=== PATIENT | male | born 1960 | race Caucasian/White ===

== ENCOUNTER 2017-05-05 20:18 | Inpatient (IN) | payer MEDICAID ==
[~2017-05-05] VITALS: Ht 180.3 cm; Wt 116.0 kg
[2017-05-05 21:52] LABS: Basophils # (auto) 0.1 uL; Eosinophils # (auto) 0.2 uL; Eosinophils % (auto) 1.7 % (0.0-7.0); Hematocrit 43.2 % (41.0-53.0); Hemoglobin 14.3 g/dL (13.5-17.5); Lymphocytes # (auto) 2.2 uL; Lymphocytes % (auto) 16.9 % (10.0-50.0); Mean Corpuscular Hemoglobin 29.8 pg (28.0-32.0); Mean Corpuscular Volume 90.3 fL (80.0-100.0); Monocytes # (auto) 1.3 uL; Monocytes % (auto) 9.9 % (0.0-12.0); Neutrophils # (auto) 9.2 uL; Neutrophils % (auto) 70.5 % (37.0-80.0); Platelet Count (auto) 287 10^3/uL (140-450); Red Cell Distribution Width 14.2 % (11.8-14.3); White Blood Cell 13.1 10^3/uL (4.4-10.8)
[2017-05-05 22:03] LABS: Bilirubin, Total 0.2 mg/dL (0.2-1.0); Potassium 3.8 mmol/L (3.5-5.1); Total Protein 7.4 g/dL (6.4-8.2)
[2017-05-06 02:51] LABS: Cellular Cast FEW /hpf (0); Urine Bilirubin Negative (Negative); Urine Blood TRACE /uL (Negative); Urine Color Yellow (Yellow); Urine Glucose 4+ mg/dL (Normal); Urine Hyaline Cast FEW /lpf (0 - 2); Urine Ketone Negative (Negative); Urine Mucus FEW (None Seen); Urine Nitrite Negative (Negative); Urine RBC 1 /hpf (0 - 3); Urine Urobilinogen Normal (Negative)
[2017-05-06] MEDS ORDERED: MORPHINE SULF INJ 2 MG/ML SYRINGE 1ML IV ONE (03:15)
[2017-05-06] MEDS ORDERED: ONDANSETRON HCL 4 MG/2 ML VIAL IV ONE ×2 (03:15→04:00)
[2017-05-06] MEDS ORDERED: cefTRIAXone 1GM/50ML D5W 50 ML IV ONE (04:00)
[2017-05-06] MEDS ORDERED: HYDROmorphone HCL 2 MG/ML VL IV ONE (04:00)
[2017-05-06] MEDS ORDERED: InsuLIN REG 1unit/0.01ml Soln (100units/ml) IV ONE (04:00)
[2017-05-06] MEDS ORDERED: ACETAMINOPHEN 325 MG TAB PO PRN (05:30)
[2017-05-06] MEDS ORDERED: ONDANSETRON HCL 4 MG/2 ML VIAL IV PRN (05:30)
[2017-05-06] MEDS ORDERED: VANCOMYCIN PER PHARMACY 0 MG IV SCH (05:30)
[2017-05-06] MEDS ORDERED: TEMAZEPAM 15 MG CAP PO PRN (05:30)
[2017-05-06] MEDS ORDERED: DEXTROSE (50%) 50ML SYRG IV PRN (05:30)
[2017-05-06] MEDS: ACCU-CHEK COMFORT CURVE STRIP VI SCH ×3 (05:45→18:00)
[2017-05-06] MEDS: InsuLIN REG 1unit/0.01ml Soln (100units/ml) SC SCH ×3 (05:45→18:33)
[2017-05-06] MEDS: HYDROcodone-ACET 5/325MG TAB PO PRN ×4 (06:58→21:45)
[2017-05-06] MEDS: VANCOMYCIN 1GM/250ML D5W 250 ML IV SCH ×2 (10:47→20:27)
[2017-05-06] MEDS: FAMOTIDINE 20 MG TAB PO SCH ×2 (10:49→21:44)
[2017-05-06] MEDS: ENOXAPARIN SOD 40 MG/0.4 ML SYRINGE SC SCH (10:49)
[2017-05-06] MEDS: GABAPENTIN 400 MG CAP PO SCH ×2 (10:49→21:44)
[2017-05-06] MEDS: HCTZ 25 MG TAB PO SCH (10:50)
[2017-05-06] MEDS: BENAZEPRIL HCL 10 MG TAB PO SCH (10:51)
[2017-05-06 13:00] VITALS: BP 155/78
[2017-05-06 17:27] VITALS: BP 150/69
[2017-05-06] MEDS: TERAZOSIN HCL 1 MG CAP PO SCH (21:44)
[2017-05-06 22:00] VITALS: BP 181/94
[2017-05-07] MEDS: ACCU-CHEK COMFORT CURVE STRIP VI SCH ×4 (00:09→18:02)
[2017-05-07] MEDS: InsuLIN REG 1unit/0.01ml Soln (100units/ml) SC SCH ×4 (00:09→18:27)
[2017-05-07] MEDS: HYDROcodone-ACET 5/325MG TAB PO PRN ×3 (03:24→14:00)
[2017-05-07 05:00] VITALS: BP 159/76
[2017-05-07 07:14] LABS: Basophils # (auto) 0.1 uL; Basophils % (auto) 0.6 % (0.0-2.0); Eosinophils # (auto) 0.3 uL; Eosinophils % (auto) 2.3 % (0.0-7.0); Hemoglobin 13.2 g/dL (13.5-17.5); Lymphocytes # (auto) 1.9 uL; Lymphocytes % (auto) 14.8 % (10.0-50.0); Mean Corpuscular Hemoglobin 30.3 pg (28.0-32.0); Mean Corpuscular Hgb Conc. 33.7 g/dL (32.0-36.0); Mean Corpuscular Volume 89.7 fL (80.0-100.0); Monocytes # (auto) 1.1 uL; Monocytes % (auto) 8.3 % (0.0-12.0); Neutrophils # (auto) 9.7 uL; Platelet Count (auto) 250 10^3/uL (140-450); Red Cell Distribution Width 13.6 % (11.8-14.3); White Blood Cell 13.1 10^3/uL (4.4-10.8)
[2017-05-07 07:19] LABS: Albumin 2.6 g/dL (3.4-5.0); BUN/Creatinine Ratio 18.7; Calcium 8.4 mg/dL (8.5-10.1)
[2017-05-07 07:22] LABS: Bilirubin, Total 0.3 mg/dL (0.2-1.0); Total Protein 6.7 g/dL (6.4-8.2)
[2017-05-07 07:36] VITALS: BP 144/80
[2017-05-07] MEDS: VANCOMYCIN 1GM/250ML D5W 250 ML IV SCH (08:04)
[2017-05-07] MEDS ORDERED: cefTRIAXone 1GM/50ML D5W 50 ML IV SCH (09:00)
[2017-05-07] MEDS: HCTZ 25 MG TAB PO SCH (10:00)
[2017-05-07] MEDS: BENAZEPRIL HCL 10 MG TAB PO SCH (10:00)
[2017-05-07] MEDS: GABAPENTIN 400 MG CAP PO SCH ×2 (10:40→22:21)
[2017-05-07] MEDS: ENOXAPARIN SOD 40 MG/0.4 ML SYRINGE SC SCH (10:41)
[2017-05-07] MEDS: FAMOTIDINE 20 MG TAB PO SCH ×2 (10:41→22:22)
[2017-05-07 11:57] VITALS: BP 148/67
[2017-05-07] MEDS ORDERED: cefTRIAXone 1GM/50ML D5W 50 ML IV ONE (16:00)
[2017-05-07 17:01] VITALS: BP 158/78
[2017-05-07] MEDS: CLINDAMYCIN 600MG IV 50 ML IV SCH (20:00)
[2017-05-07 22:00] VITALS: BP 152/81
[2017-05-07] MEDS: TERAZOSIN HCL 1 MG CAP PO SCH (22:21)
[2017-05-08] MEDS: ACCU-CHEK COMFORT CURVE STRIP VI SCH ×4 (00:24→16:56)
[2017-05-08] MEDS: InsuLIN REG 1unit/0.01ml Soln (100units/ml) SC SCH ×4 (00:24→16:56)
[2017-05-08] MEDS: CLINDAMYCIN 600MG IV 50 ML IV SCH ×3 (03:00→17:30)
[2017-05-08 05:00] VITALS: BP 154/77
[2017-05-08] MEDS ORDERED: ESCI10TA53 PO (08:18)
[2017-05-08] MEDS ORDERED: INSLANTI (08:18)
[2017-05-08] MEDS ORDERED: HCTZ25T PO (08:18)
[2017-05-08] MEDS ORDERED: GABA-339 PO (08:18)
[2017-05-08] MEDS ORDERED: INSUINJ (08:18)
[2017-05-08] MEDS ORDERED: TERA1CAP33 PO (08:18)
[2017-05-08] MEDS ORDERED: BENA40TA7 PO (08:18)
[2017-05-08] MEDS ORDERED: PREG50CA PO (08:18)
[2017-05-08] MEDS: BENAZEPRIL HCL 10 MG TAB PO SCH (09:01)
[2017-05-08] MEDS: FAMOTIDINE 20 MG TAB PO SCH ×2 (09:01→21:40)
[2017-05-08] MEDS: GABAPENTIN 400 MG CAP PO SCH ×2 (09:02→21:39)
[2017-05-08] MEDS: ENOXAPARIN SOD 40 MG/0.4 ML SYRINGE SC SCH (09:02)
[2017-05-08] MEDS: HCTZ 25 MG TAB PO SCH (09:02)
[2017-05-08] MEDS: HYDROcodone-ACET 7.5/325MG TAB PO PRN ×4 (09:25→23:57)
[2017-05-08 09:49] VITALS: BP 161/85
[2017-05-08] MEDS: CEFTRIAXONE SODIUM 2 GM in D5W 5% 50 ML IV SCH (10:03)
[2017-05-08 11:49] VITALS: BP 150/74
[2017-05-08 17:12] VITALS: BP 154/75
[2017-05-08] MEDS: TERAZOSIN HCL 1 MG CAP PO SCH (21:39)
[2017-05-08] MEDS ORDERED: DEXTROSE (50%) 50ML SYRG IV PRN (22:30)
[2017-05-08] MEDS ORDERED: InsuLIN REG 1unit/0.01ml Soln (100units/ml) ONE (23:42)
[2017-05-09] MEDS: CLINDAMYCIN 600MG IV 50 ML IV SCH ×2 (01:32→09:58)
[2017-05-09 05:09] VITALS: BP 158/72
[2017-05-09 05:13] LABS: Basophils # (auto) 0.1 uL; Basophils % (auto) 1.3 % (0.0-2.0); Eosinophils # (auto) 0.3 uL; Eosinophils % (auto) 3.2 % (0.0-7.0); Hematocrit 41.2 % (41.0-53.0); Lymphocytes # (auto) 2.4 uL; Lymphocytes % (auto) 23.2 % (10.0-50.0); Mean Corpuscular Hemoglobin 30.6 pg (28.0-32.0); Mean Corpuscular Volume 90.1 fL (80.0-100.0); Mean Platelet Volume 9.3 fL (6.9-10.8); Monocytes % (auto) 9.9 % (0.0-12.0); Neutrophils # (auto) 6.5 uL; Neutrophils % (auto) 62.4 % (37.0-80.0); Nucleated Red Blood Cells % 0.1 %; Platelet Count (auto) 324 10^3/uL (140-450); Red Cell Distribution Width 13.8 % (11.8-14.3); White Blood Cell 10.4 10^3/uL (4.4-10.8)
[2017-05-09] MEDS: HYDROcodone-ACET 7.5/325MG TAB PO PRN ×3 (05:15→15:09)
[2017-05-09 05:38] LABS: Potassium 4.3 mmol/L (3.5-5.1)
[2017-05-09 05:41] LABS: BUN/Creatinine Ratio 15.4
[2017-05-09] MEDS: InsuLIN REG 1unit/0.01ml Soln (100units/ml) SC SCH ×2 (06:48→12:23)
[2017-05-09] MEDS: ACCU-CHEK COMFORT CURVE STRIP VI SCH ×2 (06:48→11:30)
[2017-05-09] MEDS ORDERED: metFORMIN HYDROCHLORIDE 500 MG TAB PO SCH (07:00)
[2017-05-09 07:52] VITALS: BP 131/57
[2017-05-09] MEDS: CEFTRIAXONE SODIUM 2 GM in D5W 5% 50 ML IV SCH (09:00)
[2017-05-09] MEDS: ENOXAPARIN SOD 40 MG/0.4 ML SYRINGE SC SCH (09:48)
[2017-05-09] MEDS: HCTZ 25 MG TAB PO SCH (09:51)
[2017-05-09] MEDS: FAMOTIDINE 20 MG TAB PO SCH (09:52)
[2017-05-09] MEDS: GABAPENTIN 400 MG CAP PO SCH (09:52)
[2017-05-09] MEDS: BENAZEPRIL HCL 10 MG TAB PO SCH (09:53)
[2017-05-09] MEDS ORDERED: SULF400T11 PO (10:49)
[2017-05-09] MEDS ORDERED: METF500T PO (10:49)
[2017-05-09 13:00] VITALS: BP 152/67
[2017-05-09 15:30] VITALS: BP 152/67
[2017-05-09 15:39] VITALS: BP 131/57
[2017-05-09] MEDS ORDERED: InsuLIN REG 1unit/0.01ml Soln (100units/ml) SC SCH (22:00)
== END 2017-05-09 16:45 | disposition home health service (06) | DRG 383 ==
LOC: ER 20:26 → CENTRAL 20:27
PROVIDERS: ADMIT Internal Medicine; ATTEND Internal Medicine Pulmonary Disease
PROC: 5A09357 Assistance with Respiratory Ventilation, Less than 24 Consecutive Hours, Continuous Positive Airway Pressure (ICD-10-PCS; principal; 2017-05-06)
DX: L03.113 Cellulitis of right upper limb (principal); E44.0 Moderate protein-calorie malnutrition; E11.65 Type 2 diabetes mellitus with hyperglycemia; I10 Essential (primary) hypertension; E66.9 Obesity, unspecified; F12.90 Cannabis use, unspecified, uncomplicated; F17.210 Nicotine dependence, cigarettes, uncomplicated; W57.XXXA Bitten or stung by nonvenomous insect and other nonvenomous arthropods, initial encounter; G47.00 Insomnia, unspecified; Z83.3 Family history of diabetes mellitus; Z80.9 Family history of malignant neoplasm, unspecified; Z82.49 Family history of ischemic heart disease and other diseases of the circulatory system; Z90.49 Acquired absence of other specified parts of digestive tract; Z79.4 Long term (current) use of insulin; Z68.35 Body mass index [BMI] 35.0-35.9, adult; Z80.8 Family history of malignant neoplasm of other organs or systems; Z71.89 Other specified counseling; Y93.89 Activity, other specified; Y92.89 Other specified places as the place of occurrence of the external cause; Y99.8 Other external cause status
CPT/HCPCS: 36415; 73120; 80048; 80053; 80202; 81001; 82962; 85025; 87040; 96365; 96375; J0696; J1815; J2405; J3490; J7060

== ENCOUNTER 2017-11-01 12:49 | Emergency (ER) | payer MEDICAID ==
[~2017-11-01] VITALS: Ht 180.3 cm; Wt 92.5 kg
[~2017-11-01 12:49] MED LIST: BENA40TA7 PO; ESCI10TA53 PO; GABA-339 PO; HCTZ25T PO; INSLANTI; INSUINJ; METF500T PO; PREG50CA PO; SULF400T11 PO; TERA1CAP33 PO
[2017-11-01 13:20] VITALS: BP 175/96
[2017-11-01] MEDS ORDERED: cefTRIAXone SOD 1,000 MG VL IM ONE (15:45)
[2017-11-01] MEDS ORDERED: LIDOCAINE 1% (LOCAL ANESTH.) PF 5ml SDV ONE (17:07)
[2017-11-01] MEDS ORDERED: ONDANSETRON HCL 4 MG/2 ML VIAL IV ONE (18:00)
[2017-11-01] MEDS ORDERED: SODIUM CHLORIDE 0.9% 2,000 ML IV ONE (18:00)
[2017-11-01] MEDS ORDERED: InsuLIN REG 1unit/0.01ml Soln (100units/ml) IV ONE (18:00)
== END 2017-11-01 18:25 | disposition home or self-care (01) ==
LOC: ER 12:49
DX: L03.211 Cellulitis of face (principal); E11.9 Type 2 diabetes mellitus without complications; F17.210 Nicotine dependence, cigarettes, uncomplicated; F12.10 Cannabis abuse, uncomplicated; Z79.4 Long term (current) use of insulin
CPT/HCPCS: 70486; 82962; 96372; 99284; J0696